=== PATIENT | female | born 1965 ===

== ENCOUNTER → 2017-12-02 | Outpatient (CLI) | payer OTHER ==
[~2017-12-02] VITALS: Ht 167.6 cm; Wt 68.0 kg
[~2017-12-02] MED LIST: ALPR0.255 PO; BUPR-93 PO; CHOL200016 PO; CYCL10 PO; OMEP20 PO
[2017-12-02 11:05] VITALS: BP 149/80
== END | disposition home or self-care (01) ==
LOC: SRCNTR 10:54
PROVIDERS: ATTEND Internal Medicine Critical Care Medicine
DX: R06.00 Dyspnea, unspecified (principal); G89.4 Chronic pain syndrome
CPT/HCPCS: G0463

== ENCOUNTER → 2018-04-14 | Outpatient (CLI) | payer OTHER ==
[~2018-04-14] VITALS: Ht 167.6 cm; Wt 67.5 kg
[~2018-04-14] MED LIST changes: +FLUT16H NASAL; +MONT10TA21 PO
[2018-04-14 12:15] VITALS: BP 126/80
== END | disposition home or self-care (01) ==
LOC: SRCNTR 12:09
PROVIDERS: ATTEND Internal Medicine Critical Care Medicine
DX: R06.00 Dyspnea, unspecified (principal); G89.4 Chronic pain syndrome
CPT/HCPCS: G0463

== ENCOUNTER → 2018-07-21 | Outpatient (CLI) | payer OTHER ==
[~2018-07-21] VITALS: Ht 167.6 cm; Wt 69.2 kg
[~2018-07-21] MED LIST changes: -OMEP20 PO
[2018-07-21 14:54] VITALS: BP 136/75
== END | disposition home or self-care (01) ==
LOC: SRCNTR 14:39
PROVIDERS: ATTEND Internal Medicine Critical Care Medicine
DX: R06.00 Dyspnea, unspecified (principal); M79.7 Fibromyalgia; I10 Essential (primary) hypertension; G89.4 Chronic pain syndrome; R00.0 Tachycardia, unspecified
CPT/HCPCS: G0463

== ENCOUNTER → 2018-10-19 | Outpatient (CLI) | payer OTHER ==
[~2018-10-19] VITALS: Ht 167.6 cm; Wt 70.0 kg
[~2018-10-19] MED LIST changes: -CHOL200016 PO; +CHOL200059 PO
[2018-10-19 14:08] VITALS: BP 134/76
== END | disposition home or self-care (01) ==
LOC: SRCNTR 13:40
PROVIDERS: ATTEND Internal Medicine Critical Care Medicine
DX: R06.02 Shortness of breath (principal); M79.7 Fibromyalgia; G89.4 Chronic pain syndrome; I10 Essential (primary) hypertension; R00.0 Tachycardia, unspecified; R53.82 Chronic fatigue, unspecified
CPT/HCPCS: G0463